=== PATIENT | male | born 1995 | race Two or more races ===

== ENCOUNTER 2024-09-27 13:27 | Emergency (ER) | payer OTHER, MEDICAID ==
[~2024-09-27] VITALS: Ht 170.2 cm; Wt 85.7 kg
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
[2024-09-27] MEDS: ACETAMINOPHEN 500 MG TAB PO ONE (15:51)
[2024-09-27 16:03] VITALS: BP 113/66; PULSE 73; RESP 18; TEMP 98; O2SAT 96
[2024-09-27] MEDS ORDERED: IBUP-1456 PO (16:15)
[2024-09-27] MEDS ORDERED: METH-1182 PO (16:15)
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
== END 2024-09-27 16:18 | disposition home or self-care (01) ==
LOC: ER 13:27
DX: S16.1XXA Strain of muscle, fascia and tendon at neck level, initial encounter (principal); S29.011A Strain of muscle and tendon of front wall of thorax, initial encounter; Z79.1 Long term (current) use of non-steroidal anti-inflammatories (NSAID); Z79.899 Other long term (current) drug therapy; V43.62XA Car passenger injured in collision with other type car in traffic accident, initial encounter; Y93.89 Activity, other specified; Y92.89 Other specified places as the place of occurrence of the external cause; Y99.8 Other external cause status
CPT/HCPCS: 71046; 72040